=== PATIENT | female | born 1990 | race Caucasian/White ===

== ENCOUNTER 2024-09-25 19:54 | Emergency (ER) | payer OTHER ==
[~2024-09-25] VITALS: Ht 157.5 cm; Wt 68.0 kg
[2024-09-25] MEDS ORDERED: MUPI22OI7 TP (20:20)
[2024-09-25] MEDS ORDERED: CEPH-570 PO (20:20)
[2024-09-25 20:22] VITALS: BP 106/67; TEMP 98.8
[2024-09-25 20:27] VITALS: O2SAT 97
[2024-09-25] MEDS ORDERED: CLIN300C12 PO (20:41)
== END 2024-09-25 20:29 | disposition home or self-care (01) ==
LOC: ER 20:01
DX: L03.115 Cellulitis of right lower limb (principal); Z88.0 Allergy status to penicillin